=== PATIENT | female | born 1985 | race Caucasian/White ===

== ENCOUNTER 2024-08-17 17:12 | Emergency (ER) | payer OTHER, SELFPAY ==
--- OUTSIDE RECORDS SUMMARY | 2024-08-17 18:04 | XMS_ITS ---
Author Organization [facility] [place] Address [address] [address] Care Team Providers Care Pier Hand Helper Name Role Phone Mauro HANNA, Reynaldo Primary Care Provider Unavailab GUDELIA Irvin Unavailable [phone] Jeremy Rizvi MD Unavailable Unavailable Florecita Valderrama Unavailable [phone] Allergies No Known Allergies REASON FOR VISIT MIGRAINE HEADACHE Medications Medication SIG (Take, Route, Frequency, Duration) Notes Start Date End Date Status Refton Carbonate 150 MG 1 capsule Orall y Twice a day Active busPIRone HCl 10 MG 1 tablet Orally Twic e a day Active Zoloft 50 MG 1 tablet Orally Once a day Active Emgality 120 MG/ML as directed Subcutan eous one injection subcutaneously every month for 90 days 05/26/2023 Active Botox 200 UNIT as directed Injectio n inject intramuscular for chronic migraine for 30 days 07/15/2023 Active Rexulti 0.5 MG 1 tablet Orally Once a day Active Levothyroxine Sodium 175 MCG 1 tablet on an empty stomach in the morning Orally Once a day Active Naprosyn 500 MG 1 tablet as needed O rally every 12 hrs with food for 30 days Active Cyclobenzaprine HCl 5 MG 1-2 tablet Oral ly q hs for 30 days Active Problems Problem Type SNOMED Code ICD Code Onset Dates Problem Status W/U Status Risk Notes Problem Occipital neuralgia (67880503) Occipital neuralgia (M54.81) Active confirmed Vital Signs Blood pressure systolic 122 mm Hg 11/10/19 24 Blood pressure diastolic 66 mm Hg 024 Heart Rate 74 /min 11/10/2023 Temperature 98.6 degrees Fahrenheit 11/10/19 24 Encounters Encounter Location Date Provider Diagnosis [facility] [address] [address] 11/10/2023 Florecita Valderrama Chronic migraine with aura G43.109 and Occipital neuralgia M54.81 Assessments Encounter Date Diagnosis (ICD Code) Assessment Notes Treatment Notes Treatment Clinical Notes Section Notes 11/10/2023 Chronic migraine with aura (ICD-10 - G43.109) The patient had the 200 unti Botox for migraine procedure in the office today. The patient tolerated the procedure well. Postprocedure instructions were discussed. If there are any medication or procedure related problems, the patient will contact us. At the time of discharge the patient was medically stable. We will trial Qulipta. 11/10/2023 Occipital neuralgia (ICD-10 - M54.81) The patient has clinical symptoms of occipital neuralgia with intense pain. We will recommend the diagnostic right occipital nerve block. The symptoms are causing multiple missed days of work per month. The proceudre was discussed with the patient and she agrees with the recommendation. Plan Of Treatment Treatment Notes Assessment Notes Chronic migraine with aura The patient had the 200 unti Botox for migraine procedure in the office today. The patient tolerated the procedure well. Postprocedure instructions were discussed. If there are any medication or procedure related problems, the patient will contact us. At the time of discharge the patient was medically stable. We will trial Qulipta. Occipital neuralgia The patient has clinical symptoms of occipital neuralgia with intense pain. We will recommend the diagnostic right occipital nerve block. The symptoms are causing multiple missed days of work per month. The proceudre was discussed with the patient and she agrees with the recommendation. Procedure Notes * Category Sub-Category Detail Notes Botox Consent The patient is i n the office for Botox injections for treatment of migraines. All pros and cons of the procedure were discussed. The patient is aware of all the side effects of the medication and would like to proceed with the procedure. Various treatment options for correction of migraine were reviewed with the patient. Pre-Op The patient was plac ed in a comfortable supine position. The areas to be injected were cleaned with alcohol. Lot # [id number] Expiration Date 03/2026 Total Units Used Total of 200 units w as formulated, and of that 155 units were used, and 45 units were discarded. Treated Areas After the patient was placed in the procedure room. Using a 30-gauge needle, the following muscles were injected, without any complications. . . Procerus 5 units, Corrugate 10 units, Frontalis 20 units, Temporalis 40 units, Occipitalis 30 units, Paraspinal 20 units, Trapezius 30 units. . Disposition Tolerated procedure well. Post-op care discussed. Written instructions given. Dilution/units Total units utilized = 155, dilution 1.0 cc for 50 units Botox Progress Notes * Jessi ARAMBULADOB:1985 (38 yo F)Acc No.[id number]:11/10/2023 Progress Note Patient:?Jessi ARAMBULA Provider:?Florecita Dutton NP :1985???Age:38 Y???Sex:Female D ate:11/10/2023 Address:[address] [place] [address] Pcp:Reynaldo Wade MD Subjective: * Chief Complaints: * ???MIGRAINE HEADACHE * Medical History:? * Surgical History:?ACDF C5-6 03/06/2015HIATAL HERNIA 07/2016 * Hospitalization/Major Diagno stic Procedure:?Denies Past Hospitalization * Family History:?Non-Contribu tory.? * Medications:?TakingLithium C arbonate 150 MG Capsule 1 capsule Orally Twice a day busPIRone HCl 10 MG Tablet 1 tablet Orally Twice a day Zoloft 50 MG Tablet 1 tablet Orally Once a day Rexulti 0.5 MG Tablet 1 tablet Orally Once a day Levothyroxine Sodium 175 MCG Tablet 1 tablet on an empty stomach in the morning Orally Once a day Naprosyn 500 MG Tablet 1 tablet as needed Orally every 12 hrs with food Cyclobenzaprine HCl 5 MG Tablet 1-2 tablet Orally q hs Emgality 120 MG/ML Solution Auto-injector as directed Subcutaneous one injection subcutaneously every month Botox 200 UNIT Solution Reconstituted as directed Injection inject intramuscular for chronic migraine Taking Refton Carbonate 150 MG Capsule 1 capsule Orally Twice a day Taking busPIRone HCl 10 MG Tablet 1 tablet Orally Twice a day Taking Zoloft 50 MG Tablet 1 tablet Orally Once a day Taking Rexulti 0.5 MG Tablet 1 tablet Orally Once a day Taking Levothyroxine Sodium 175 MCG Tablet 1 tablet on an empty stomach in the morning Orally Once a day Taking Naprosyn 500 MG Tablet 1 tablet as needed Orally every 12 hrs with food Taking Cyclobenzaprine HCl 5 MG Tablet 1-2 tablet Orally q hs Taking Emgality 120 MG/ML Solution Auto-injector as directed Subcutaneous one injection subcutaneously every month Taking Botox 200 UNIT Solution Reconstituted as directed Injection inject intramuscular for chronic migraine * Allergies:?N.K.D.A.no[Allerg ies Verified] Objective: * Vitals:?BP:122/66mm Hg, HR:7 4/min, Temp:98.6F. Assessment: * Assessment: 1.?Chronic migraine with aur a - G43.109 (Primary)?2.?Occipital neuralgia - M54.81? Plan: * Treatment: 2.?Occipital neuralgia? Notes: The patient has clinical symptoms of occipital neuralgia with intense pain. We will recommend the diagnostic right occipital nerve block. The symptoms are causing multiple missed days of work per month. The proceudre was discussed with the patient and she agrees with the recommendation. ?? * Procedures:?Botox:?Consent?The patient is in the office for Botox injections for treatment of migraines. All pros and cons of the procedure were discussed. The patient is aware of all the side effects of the medication and would like to proceed with the procedure. Various treatment options for correction of migraine were reviewed with the patient. .?Pre-Op?The patient was placed in a comfortable supine position. The areas to be injected were cleaned with alcohol..?Lot #?[id number].?Expiration Date?03/2026.?Total Units Used?Total of 200 units was formulated, and of that 155 units were used, and 45 units were discarded..?Treated Areas?After the patient was placed in the procedure room. Using a 30-gauge needle, the following muscles were injected, without any complications. . ?. ?Procerus5 units,Ormhpyzih38 units,Wvtovzeql70 units,Haxsrztrmg75 units,Cqnsijbtjbq47 units,Qvgttmxiwm17 units,Hhqvzfyid91 units. ?..?Disposition?Tolerated procedure well. Post-op care discussed. Written instructions given..?Dilution/units?Total units utilized = 155, dilution 1.0 cc for 50 units Botox.? * Procedure Codes:?44424 CHEMO DENERV MUSC MIGRAINE * * Sign off status: Completed true * Provider:Dion Dutton NP Date:?11/10/19 24 Generated for Shaun roe/Axel/eTransmitting on:?08/17/2024 06:04 PM PIANO TUNER
--- OUTSIDE RECORDS SUMMARY | 2024-08-17 18:04 | XMS_ITS ---
Author Organization [facility] Address [address] [facility] [address] [place] [address] Care Team Providers Care Shop Coordinator Name Role Phone Reynaldo Wade MD Primary Care Provider Unavailab GUDELIA Irvin Unavailable [phone] Jeremy Rizvi MD Unavailable Unavailable Allergies No Known Allergies REASON FOR VISIT MIGRAINE HEADACHE Medications Medication SIG (Take, Route, Frequency, Duration) Notes Start Date End Date Status Botox 200 UNIT as directed Injectio n inject intramuscular for chronic migraine for 30 days 07/15/2023 Active Cyclobenzaprine HCl 5 MG 1-2 tablet Oral ly q hs for 30 days Active Emgality 120 MG/ML as directed Subcutan eous one injection subcutaneously every month for 90 days 05/26/2023 Active Naprosyn 500 MG 1 tablet as needed O rally every 12 hrs with food for 30 days Active Levothyroxine Sodium 175 MCG 1 tablet on an empty stomach in the morning Orally Once a day Active Rexulti 0.5 MG 1 tablet Orally Once a day Active busPIRone HCl 10 MG 1 tablet Orally Twic e a day Active Zoloft 50 MG 1 tablet Orally Once a day Active Novato Carbonate 150 MG 1 capsule Orall y Twice a day Active Problems Problem Type SNOMED Code ICD Code Onset Dates Problem Status W/U Status Risk Notes Problem [id number] Cervical spondylosis (M47.812) Active confirmed Vital Signs Blood pressure systolic 100 mm Hg 12/10/19 24 Blood pressure diastolic 70 mm Hg 024 Heart Rate 83 /min 12/10/2023 Temperature 98.6 degrees Fahrenheit 12/10/19 24 Encounters Encounter Location Date Provider Diagnosis [facility] [address] [address] 12/10/2023 GUDELIA PANDA Chronic migraine wit h aura G43.109 ; Occipital neuralgia M54.81 and Cervical spondylosis M47.812 Assessments Encounter Date Diagnosis (ICD Code) Assessment Notes Treatment Notes Treatment Clinical Notes Section Notes 12/10/2023 Chronic migraine with aura (ICD-10 - G43.109) Her last Botox treatment was 11/10/23, and I would recommend continuation of her Botox treatment to see if she can respond better. I would consider using the extra Botox for the cervical and trapezius muscles. We will trial Qulipta. 12/10/2023 Occipital neuralgia (ICD-10 - M54.81) The patient has clinical symptoms of occipital neuralgia with intense pain. We will recommend the diagnostic right occipital nerve block. The symptoms are causing multiple missed days of work per month. The proceudre was discussed with the patient and she agrees with the recommendation. 12/10/2023 Cervical spondylosis (ICD-10 - M47.812) she also cervical spondylosis and chronic neck pain symptoms. 12/10/2023 Other she is currentl y being evaluated by ENT for sinus related issues. We'll monitor her progress. Plan Of Treatment Treatment Notes Assessment Notes Chronic migraine with aura Her last Botox treatment was 11/10/23, and I would recommend continuation of her Botox treatment to see if she can respond better. I would consider using the extra Botox for the cervical and trapezius muscles. We will trial Qulipta. Occipital neuralgia The patient has clinical symptoms of occipital neuralgia with intense pain. We will recommend the diagnostic right occipital nerve block. The symptoms are causing multiple missed days of work per month. The proceudre was discussed with the patient and she agrees with the recommendation. Cervical spondylosis she also cervical s pondylosis and chronic neck pain symptoms. Other she is currently jeffry ng evaluated by ENT for sinus related issues. We'll monitor her progress. Pending Test Test Name Order Date X ray cervical flexion and extension AP/ Lat 12/10/2023 Progress Notes * Jessi ARAMBULADOB:1985 (38 yo F)Acc No.[id number]:12/10/2023 Patient:?Jessi ARAMBULA Provider:?GUDELIA PANDA M.D. :1985???Age:38 Y???Sex:Female D ate:12/10/2023 Address:[address] [facility] Pcp:Reynaldo Wade MD Subjective: * Chief Complaints: * ???MIGRAINE HEADACHE * HPI: ???FOLLOW UP:? The patient presents in office for evaluation of migraine headaches. ?She has had 2 rounds of Botox Without any significant side effects. ?She has no relief with Nurtec or Ubrelvy. ?The migraines have gradually been getting worse over the last year. She is having chronic sinus infections. ?She is having>15 migraine days per month which is now causing 4-5 missed days of work per month. ?She has been on Emgality with minimal relief. ?She can't identify a cause of the migraines. Stress makes the migraines worse. She denies any neck pain. ?The migraines typically last about 8 hours. She has visual changes at onset. She then develops nausea, vomiting, sensitivity to light and sound. ?Following the migraine, she then has a hangover headache for 2-3 days. ?She takes Imitrex for abortive therapy, but this causes sedation. She has failed Wellbutrin, BuSpar, cyclobenzaprine, naproxen, Zoloft. ?Due to low blood pressure, beta blockers are not a good option for management of the migraines. ?Dr. Resendiz did MRI of brain which did not show any identifying causes for the migraines. ?Recently, the migraines are starting during the night. ?The migraines are worse on the right and left eye. ?She had a X-ray of her neck on 02/25/[address] Durham. ?She had ACDF C5-6 on 02/25/2015. * ROS:?General/Constitutional:?Overall health?Fair.?Change in appetite?denies.?Chills?denies.?Fatigue?denies.?Fever?denies.?Weight gain?denies.?Weight loss?denies.?ENT:?Decreased hearing?denies.?Dry mouth?denies.?Hearing problem?denies.?Endocrine:?Diabetes?denies.?Thyroid problems?denies.?Respiratory:?Breathing problems?denies.?Chest pain?denies.?Cardiovascular:?Chest pain?denies.?Fluid accumulation in the legs?denies.?Gastrointestinal:?Abdominal pain?denies.?Constipation?denies.?Diarrhea?denies.?Musculoskeletal:?Neck pain?admits.?Thoracic pain?denies.?Low back pain?admits.?Arthritis?denies.?Back problems?admits.?Joint stiffness?denies.?Swollen joints?denies.?Weakness?denies.?Peripheral Vascular:?Painful extremities?denies.?Ulceration of feet?denies.?Neurologic:?Gait abnormality?denies.?Headache?admits.?Memory loss?denies.?Seizures?denies.?Stroke?denies.?Tingling/Numbness?denies.?Tremor?de nies.?Psychiatric:?Depressed mood?admits.?Difficulty sleeping?denies.?Substance abuse?denies.? * Medical History:? * Surgical History:?ACDF C5-6 03/06/2015HIATAL HERNIA 07/2016 * Hospitalization/Major Diagno stic Procedure:?No Hospitalization History. * Family History:?No Family Hi story documented..? * Social History:?Drugs/Alcohol:?Caffeine?Intake:?1-2 cups per day.?Do you smoke marijuana?: Denies. Do you drink alcohol?: No. * Medications:?TakingLithium C arbonate 150 MG Capsule [...] directed Injection inject intramuscular for chronic migraine Medication List reviewed and reconciled with the patientTaking Novato Carbonate 150 MG Capsule 1 capsule Orally [...] directed Injection inject intramuscular for chronic migraine Medication List reviewed and reconciled with the patient * Allergies:?N.K.D.A.no[Allerg ies Verified] Objective: * Vitals:?BP:100/70mm Hg, HR:8 3/min, Temp:98.6F. * Examination: ???Neurological: ?CORTICAL FUNCTIONS:?alert and oriented X 3, speech fluent?.?MOTOR STRENGTH:?RIGHT UPPER EXTREMITY: deltoid abduction 5/5, biceps flexion 5/5, triceps extension 5/5, wrist extension 5/5, finger abduction 5/5. ?LEFT UPPER EXTREMITY:deltoid abduction 5/5, biceps flexion 5/5, triceps extension 5/5, wrist extension 5/5, finger abduction 5/5. ?RIGHT LOWER EXTREMITY: Hip Flexor 5/5, Quadriceps 5/5, Ankle DF 5/5, EHL 5/5. ?LEFT LOWER EXTREMITY: Hip Flexor 5/5, Quadriceps 5/5, Ankle DF 5/5, EHL 5/5..?SENSORY:?RIGHT UPPER EXTREMITY; pinprick sensation intact. ?LEFT UPPER EXTREMITY; pinprick sensation intact. ?RIGHT LOWER EXTREMITY: pinprick sensation intact. ?LEFT LOWER EXTREMITY: pinprick sensation intact.?.?REFLEXES:?RIGHT UPPER EXTREMITY; BICEPS: 2+, TRICEPS: 2+, BRACHIORADIALIS: 2+. ?LEFT UPPER EXTREMITY; BICEPS: 2+, TRICEPS: 2+, BRACHIORADIALIS: 2+. ?RIGHT LOWER EXTREMITY: KNEE 3+, ANKLE 3+. ?LEFT LOWER EXTREMITY: KNEE 3+, ANKLE 3+. ? ,?.?CEREBELLAR SIGNS:?absent , absent.?COORDINATION:?no ataxia , no ataxia.?GAIT AND STATION:?within normal limits , within normal limits.?SPEECH:?normal , normal.?Cervical Spine/Neck: ?INSPECTION/PALPATION:?scar from previous surgery..?RANGE OF MOTION OF NECK:?normal in all directions.?MYOFASCIAL TRIGGER POINTS:?Paraspinals, Occipital pain..? Assessment: * Assessment: 1.?Chronic migraine with aur a - G43.109 (Primary)?2.?Occipital neuralgia - M54.81?3.?Cervical spondylosis - M47.812? Plan: * Treatment: 2.?Occipital neuralgia? Notes: The patient has clinical symptoms of occipital neuralgia with intense pain. We will recommend the diagnostic right occipital nerve block. The symptoms are causing multiple missed days of work per month. The proceudre was discussed with the patient and she agrees with the recommendation. ?? 3.?Cervical spondylosis?Imaging: X ray cervical flexion and extension AP/Lat Notes: she also cervical spondylosis and chronic neck pain symptoms.?? 4.?Others? Notes: she is currently being evaluated by ENT for sinus related issues. We'll monitor her progress.?? * Procedure Codes:? * * Sign off status: Completed true * Provider:?GUDELIA PANDA M.D. Date:?2023 Generated for Shaun roe/Axel/Tiago on:?08/17/2024 06:04 PM EGG CRATER History and Physical Notes * Examination Category Sub-Category Detail Notes Category Not es Cervical Spine/Neck RANGE OF MOTION OF NECK: normal in all directions MYOFASCIAL TRIGGER POINTS: Paraspinals, Occipital pain. INSPECTION/PALPATION: scar from previous surgery. Neurological CORTICAL FUNCTIONS: alert and oriented X 3, speech fluent MOTOR STRENGTH: RIGHT UPPER EXTREMIT Y: deltoid abduction 5/5, biceps flexion 5/5, triceps extension 5/5, wrist extension 5/5, finger abduction 5/5. LEFT UPPER EXTREMITY:deltoid abduction 5/5, biceps flexion 5/5, triceps extension 5/5, wrist extension 5/5, finger abduction 5/5. RIGHT LOWER EXTREMITY : Hip Flexor 5/5, Quadriceps 5/5, Ankle DF 5/5, EHL 5/5. LEFT LOWER EXTREMITY: Hip Flexor 5/5, Quadriceps 5/5, Ankle DF 5/5, EHL 5/5. SENSORY: RIGHT UPPER EXTREMIT Y; pinprick sensation intact. LEFT UPPER EXTREMITY; pinprick sensation intact. RIGHT LOWER EXTREMITY: pinprick sensation intact. LEFT LOWER EXTREMITY: pinprick sensation intact. REFLEXES: RIGHT UPPER EXTREMIT Y; BICEPS: 2+, TRICEPS: 2+, BRACHIORADIALIS: 2+. LEFT UPPER EXTREMITY; BICEPS: 2+, TRICEPS: 2+, BRACHIORADIALIS: 2+. RIGHT LOWER EXTREMITY: KNEE 3+, ANKLE 3+. LEFT LOWER EXTREMITY: KNEE 3+, ANKLE 3+. , PLANTARS: CEREBELLAR SIGNS: absent , absent TREMORS: COORDINATION: no ataxia , no ataxi a GAIT AND STATION: within normal limits , within normal limits SPEECH: normal , normal TINEL'S COMPRESSION: PHALEN'S SIGN:
--- OUTSIDE RECORDS SUMMARY | 2024-08-17 18:05 | XMS_ITS | Patient Health Record ---
Author Organization [facility] [employer] [facility] Address [address] [address] Care Team Providers Care Chief Console Operator Name Role Phone Reynaldo Wade MD Primary Care Provider Unavailab GUDELIA Irvin Unavailable [phone] Jeremy Rizvi MD Unavailable Unavailable Florecita Valderrama Unavailable [phone] Allergies No Known Allergies Reason For Referral No Information Medications Medication SIG (Take, Route, Frequency, Duration) Notes Start Date End Date Status Cyclobenzaprine HCl 5 MG 1-2 tablet Oral ly q hs for 30 days Active Emgality 120 MG/ML as directed Subcutan eous one injection subcutaneously every month for 90 days 05/26/2023 Active Naprosyn 500 MG 1 tablet as needed O rally every 12 hrs with food for 30 days Active Botox 200 UNIT INJECT INTO THE MUSC LE DIRECTED FOR CHRONIC MIGRAINE. DISCARD UNUSED PORTION. (MUST RECONSTITUTE) Active Rexulti 0.5 MG 1 tablet Orally Once a day Active Levothyroxine Sodium 175 MCG 1 tablet on an empty stomach in the morning Orally Once a day Active busPIRone HCl 10 MG 1 tablet Orally Twic e a day Active Zoloft 50 MG 1 tablet Orally Once a day Active Jeannette Carbonate 150 MG 1 capsule Orall y Twice a day Active Problems Problem Type SNOMED Code ICD Code Onset Dates Problem Status W/U Status Risk Notes Problem Refractory migraine with aura (421114006) Migraine with aura, intractable, without status migrainosus (G43.119) Active confirmed Problem Occipital neuralgia (00098050) Occipital neuralgia (M54.81) Active confirmed Problem 29321918 Sacroiliitis (M46.1) Active confirmed Problem 926331686 Lumbar radiculopathy (M54.16) Active confirmed Problem 354599486 Cervical myofasc ial pain syndrome (M79.1) Active confirmed Problem 790877703 Acute bilateral low back pain without sciatica (M54.5) Active confirmed Problem 58275826 Spinal enthesopa thy of cervicothoracic region (M46.03) Active confirmed Problem 791701292 Cervical spondylosis (M47.812) Active confirmed Problem Migraine with aura (3401249) Chronic migraine with aura (G43.109) Active confirmed Vital Signs Heart Rate 83 /min 12/10/2023 Temperature 98.6 degrees Fahrenheit 12/10/2023 Blood pressure diastolic 70 mm Hg 12/10/2023 Blood pressure systolic 100 mm Hg 12/10/2023 Encounters Encounter Location Date Provider Diagnosis [facility] [address] [address] 11/10/2023 Florecita Valderrama Chronic migraine wit h aura G43.109 and Occipital neuralgia M54.81 [facility] [address] [address] 12/10/2023 GUDELIA AHMAD Chronic migraine wit h aura G43.109 ; Occipital neuralgia M54.81 and Cervical spondylosis M47.812 Assessments Encounter Date Diagnosis (ICD Code) Assessment Notes Treatment Notes Treatment Clinical Notes Section Notes 11/10/2023 Occipital neuralgia (ICD-10 - M54.81) The patient has clinical symptoms of occipital neuralgia with intense pain. We will recommend the diagnostic right occipital nerve block. The symptoms are causing multiple missed days of work per month. The proceudre was discussed with the patient and she agrees with the recommendation. 11/10/2023 Chronic migraine with aura (ICD-10 - G43.109) The patient had the 200 unti Botox for migraine procedure in the office today. The patient tolerated the procedure well. Postprocedure instructions were discussed. If there are any medication or procedure related problems, the patient will contact us. At the time of discharge the patient was medically stable. We will trial Qulipta. 12/10/2023 Occipital neuralgia (ICD-10 - M54.81) The patient has clinical symptoms of occipital neuralgia with intense pain. We will recommend the diagnostic right occipital nerve block. The symptoms are causing multiple missed days of work per month. The proceudre was discussed with the patient and she agrees with the recommendation. 12/10/2023 Chronic migraine with aura (ICD-10 - G43.109) Her last Botox treatment was 11/10/23, and I would recommend continuation of her Botox treatment to see if she can respond better. I would consider using the extra Botox for the cervical and trapezius muscles. We will trial Qulipta. 12/10/2023 Cervical spondylosis (ICD-10 - M47.812) she also cervical spondylosis and chronic neck pain symptoms. 12/10/2023 Other she is currentl y being evaluated by ENT for sinus related issues. We'll monitor her progress. Plan Of Treatment Pending Test Test Name Order Date X ray : Spines, lumbar 03/18/2018 X ray : Pelvis 03/18/2018 X ray cervical flexion and extension AP/ Lat 12/10/2023 Insurance Providers Payer Name Payer Address Payer Phone Subscriber Number Group Number Insured Name Patient Relationship to Insured Coverage Start Date Coverage End Date [employer] [address] [place] [address] [id number] Jessi Arambula Self - patient is the insured Medical (General) History Surgical History Surgery Date(Month/Year) ACDF C5-6 03/06/2015 HIATAL HERNIA 07/2016
--- OUTSIDE RECORDS SUMMARY | 2024-08-17 18:05 | XMS_ITS | Continuity of Care Document ---
Author Organization [facility] Address [address] [place] [address] Phone Care Team Providers Care Agricultural Pilot Name Role Phone Reynaldo Saleem MD Unavailable Unavailable Advance Directives Directive Yes / No Effective Date File Name No Information Encounters Encounter Description Practice Location Reason(s) For Visit Diagnoses Date Provider Providers Copied on Encounter [facility], [address], [place], [address], [place] tel:[phone] [facility] No Information [address] Harper Jacobs. [address] [place], [place], [id number] . tel: [phone] Family History Family Member Type Diagnosis Age At Onset No Information Payers Payer name Insurance type Covered green party ID Authoriza tion(s) No Information Social History Type Description Quantity Date Captured Comments Sex Female Smoking Status No Information Chief Complaint And Reason For Visit No Information Reason For Referral Reason For Referral No Information History Of Present Illness Encounter Date Complaint History Of Prese nt Illness No Information Functional Status Date Functional Assessmen t No Information Instructions Date Instruction Additional Infor mation No Information Assessments Type Assessment Date No Information Patient Care Teams Name Effective Dates (start - stop) Status Members No Information
--- OUTSIDE RECORDS SUMMARY | 2024-08-17 18:05 | XMS_ITS | Encounter Summary ---
Author Organization [facility] Address [address] [place] [address] Care Team Providers Care Etl Informatica Developer Name Role Phone Hugo Mansfield MD Primary Care Provider [phone] Encounter Details Date Type Department Care Team (Late st Contact Info) Description 12/20/2018 Lab Requisition [facility] Care D[facility]Path Lab [address] [place] [id number] Paresh Howard MD [address] [place] [address] Social History Tobacco Use Types Packs/Day Years Used Date Smoking Tobacco: Every Day Smokeless Tobacco: Never Alcohol Use Standard Drinks/Week Comments No 0 (1 standard drink = 0.6 oz pur e alcohol) Sex and Gender Information Value Date Recorded Sex Assigned at Not on file Gender Identity Not on file Sexual Orientation Not on file documented as of this encounter Plan of Treatment Not on file documented as of this encounter Procedures Procedure Name Priority Date/Time Associated Diagnosis Comments DERMATOPATHOLOGY Routine 12/17/2018 12:0 0 AM CDT documented in this encounter Results * DERMATOPATHOLOGY (12/17/2018 12:00 AM CDT) Case Report Dermatopathology Report ? Case: [id number] ? Authorizing Provider: ??Paresh Howard MD ? Collected: ? 12/17/2018 12:00 AM ? Pathologist: ? Christa Mcdaniel MD ? Received: ?12/20/2018 11:32 AM ? Specimen: ?Skin, back ? 5:37 PM CDT DERMATOPATHOLOGY LABORATORY Final Diagnosis Specimen A. SKIN, back: COMPOUND MELANOCYTIC NEVUS, IRRITATED (D22.5) 5:37 PM CDT DERMATOPATHOLOGY LABORATORY Clinical History Nevus. 5:37 PM CDT DERMATOPATHOLOGY LABORATORY Gross Description Specimen A: Received is one formalin filled container labeled with the patient's name. The specimen consists of a shave biopsy measuring [id number]. Jar 0. 5:37 PM CDT DERMATOPATHOLOGY LABORATORY Microscopic Description Specimen A. SKIN, back: There is melanin pigment in the stratum corneum. There are nests of melanocytes at the dermal-epidermal junction and within the dermis. 5:37 PM CDT DERMATOPATHOLOGY LABORATORY Disclaimer An external and internal positive and negative controls are appropriate for the histochemical, immunohistochemical and immunofluorescence stain(s) in this case (if any), except where stated explicitly. The performance characteristics of the stain(s) cited in this report were developed and its performance characteristic determined by the Dermatopathology Laboratory at [facility], directed by Dr. Macy Mcdaniel. These tests need not be, and therefore are not, approved by the [place] Food and Drug Administration. The tests are used for clinical purposes. Billing Codes Specimen Charges Stain Charges 55277 1 9 5:37 PM CDT DERMATOPATHOLOGY LABORATORY Embedded Images 9 5:37 PM CDT DERMATOPATHOLOGY LABORATORY Pathology/Cytolog y TISSUE SPECIMEN FROM SKIN / Unknown 12/17/2018 12/20/2018 11:32 AM CDT Paresh Howard MD LAB - PATHOLOGY/CYTO LOGY ORDERABLES DERMATOPATHOLOGY LABORATORY [facility] - Department of Dermatology [address] [place] [address], 5th Floor Lab [address] [phone] documented in this encounter Visit Diagnoses Not on filedocumented in this encounter Care Teams Etl Informatica Developer Relationship Specialty Start Date End Date Hugo Mansfield MD [address] [place] [address] PCP - General Political Advisor 01/05/24 documented as of this encounter
--- OUTSIDE RECORDS SUMMARY | 2024-08-17 18:05 | XMS_ITS | Continuity of Care Document ---
Author Organization [facility] Address [address] [place] [address] Phone Care Team Providers Care Curriculum Coordinator Name Role Phone Kenyatta OD OD, Erna Unavailable Unavai lable Allergies, Adverse Reactions, Alerts Substance Reaction Status Criticality No Known Allergies Active No Inform ation Medications Medication Instructions Dosage Effective Dates (start - stop) Status Comments erythromycin 5 mg/gram (0.5 %) eye ointment apply (1CM) by ophthalmic route 3 times every day ribbon into the lower conjunctival sac(s) in the affected eye(s) 1 CM - Active levothyroxine 175 mcg tablet take 1 tablet by oral route every day 175 MCG - Active pantoprazole 40 mg tablet,delayed release take 1 tablet by oral route every day 40 MG - Active Procedures Procedure Date OFFICE/OUTPATIENT VISIT, EST OFFICE/OUTPATIENT VISIT, NEW REMOVE FOREIGN BODY FROM EYE Advance Directives Directive Yes / No Effective Date File Name No Information Encounters Encounter Description Practice Location Reason(s) For Visit Diagnoses Date Provider Providers Copied on Encounter OFFICE/OUTPAT IENT VISIT, EST [facility], [address], [place], [place], [address], [place] tel:[phone] Oph Consult [facility] Office k abrasion f/u (chief complaint) Corneal abrasion, right, subsequent encounterPain around right eye 6 Derheimer OD Erna. [address] , [address], [place], [place], [address], [place]. tel:[phone] Referring Provider: Erna You OD, [address], [place], [place], [address]. tel:[phone] OFFICE/OUTPAT IENT VISIT, NEW [facility], [address], [place], [place], [address], [place] tel:[phone] [phone] CONSULT CHANNING CHENG painful and tearing (chief complaint) Pain around right eyeCorneal abrasion, right, initial encounter 6 Kenyatta OD Erna. [address], [place], [place], [address], [place]. tel:[phone] Referring Provider: Erna You OD, [address], [place], [place], [address]. tel:[phone] Family History Family Member Type Diagnosis Age At Onset Problem (finding) Family history of Macul ar degeneration Payers Payer name Insurance type Covered democrat ID Authoranthonya tirema(s) [facility] [id number] Social History Type Description Quantity Date Captured Comments Alcohol Use Details Caffeine Use Details Unknown Tobacco Use Status No Information Smoking Status Current every day smoker 2015 Sex Female Chief Complaint And Reason For Visit From encounter dated '06/09/2016 12:00'. k abrasion f/u (chief complaint). Description: The 30 year old female presents for evaluation of k abrasion f/u in the right eye. It started about 6 day(s) ago. The symptom is constant. The conditionis improving. Pt says no more pain, just a little light sensitive. BCL fell out Thursday. Pt reduced Erythromycin marissa use to BID since Thursday becauses of blurriness. Plan Of Treatment Date Type Action Status No Information History Of Present Illness Encounter Date Complaint History Of Prese nt Illness k abrasion f/u The 30 year old female presents for evaluation of k abrasion f/u in the right eye. It started about 6 day(s) ago. The symptom is constant. The condition is improving. Pt says no more pain, just a little light sensitive. BCL fell out Thursday. Pt reduced Erythromycin marissa use to BID since Thursday becauses of blurriness. painful and tearing The 30 year old female presents for evaluation of painful and tearing in the right eye. It started about 3 hour(s) ago. The symptom is constant. The condition is worsening. Pt hit eye with an envelope earlier today. Pt having very difficult time keeping OD open. Instructions Date Instruction Additional Infor mation Impression/Plan - Se condary to Corneal Abrasion OD Related to Pain around right eye Impression/Plan - Co ndition improving Cont. Erythromycin marissa TID OD x2days & then D/cDiscussed risk or recurrent erosion in the future. Pt to start ATs OU - sample given of Blink today Related to Corneal abrasion, right, subsequent encounter Follow up - RTO as needed Impression/Plan - OD : Discussed diagnosis in detail with patient. Advised patient of condition, no infection. Reassured patient of current condition and treatment. 1 gtt Besivance instilled in eye and BCL was placed today. Will ERx antibiotic gtt today. Erythromycin marissa TID OD sent to pharmacy today. RTO Thursday for f/u Related to Corneal abrasion, right, initial encounter Impression/Plan - Se condary to abrasion. Related to Pain around right eye Follow up - RTO for f/u Thursday Assessments Type Assessment Date impression Corneal abrasion, right, subsequ ent encounter: S05.01xD OD. assessment Corneal abrasion, right, subsequ ent encounter assessment Pain around right eye 6 impression Pain around right eye: H57.11 OD .
--- OUTSIDE RECORDS SUMMARY | 2024-08-17 18:05 | XMS_ITS ---
Author Organization [facility] Address [address] [address] Care Team Providers Care Account Manager Sales Representative Name Role Phone Mauro HANNA, Reynaldo Primary Care Provider Unavailab GUDELIA Irvin Unavailable [phone] Dmitri HANNA, Jeremy Unavailable Unavailable Encounters Encounter Location Date Provider Diagnosis [facility] [address] [address] 02/10/2024 GUDELIA PANDA Plan Of Treatment No Information Progress Notes * Jessi ARAMBULADOB:1985 (39 yo F)Acc No.[id number]:02/10/2024 Progress Note Patient:?Jessi ARAMBULA Provider:?GUDELIA PANDA M.D. :1985???Age:38 Y???Sex:Female D ate:02/10/2024 Address:[address] [place] [address] Pcp:Reynaldo Wade MD Subjective: * Chief Complaints: * ??? * Medical History:? Objective: * Vitals:? Assessment: Plan: * Treatment: * * Electronic signature of PRESLEY PANDA MD on 08/17/2024 at 06:04 PM MOLDER FEEDER Sign off status: Pending * Provider:SARAH PANDA M.D. Date:?2023 Generated for Shamekai jyothi/Fanikkieg/eTransmitting on:?08/17/2024 06:04 PM MOLDER FEEDER
--- OUTSIDE RECORDS SUMMARY | 2024-08-17 18:05 | XMS_ITS | Referral Summary ---
Author Organization [facility] Address [address] [place] [address] Care Team Providers Care Rides Attendant Name Role Phone Hugo Mansfield MD Primary Care Provider [phone] Source Comments [facility]non-owned Affiliates and Associated Physician Practices is amultiple site organization consisting of ambulatory clinics and hospital sitesin [place], [place], [place] and [place]. This disclosure is being madepursuant to the Care Everywhere program and may not contain all information available regarding this patient. Last updated 18.[facility] Allergies No known active allergies Medications * Be aware that medications may not be up to date on this document. Alwaysverify current medications with the patient. Medication Sig Dispensed Refills Start Date End Date Status levonorgestrel (MIRENA) 20 MCG/24HR IUD 1 (one) device by Intrauterine route as directed Active Rexulti 0.5 MG tablet Take 1 (one) tablet by mouth every morning 09/09/2023 Active FLUoxetine (PROzac) 20 MG capsule Take 1 (one) capsule by mouth once daily 09/07/2023 Active busPIRone (Buspar) 15 MG tablet Take 1 (one) tablet by mouth 2 times daily Active levothyroxine (Synthroid) 200 MCG tablet Take 1 (one) tablet by mouth once daily 02/05/2023 Active levothyroxine (Synthroid) 50 MCG tablet Take 1 (one) tablet by mouth once daily 10/24/2022 Active lithium CR (Lithobid) 300 MG tablet Take 1 (one) tablet by mouth at bedtime 08/21/2023 Active omeprazole (PriLOSEC) 20 MG capsule Take 1 (one) capsule by mouth once daily 01/02/2023 Active Multiple Vitamin (Genicin Nena-Q) TABS Take 1 mg by mouth once daily Active Cyanocobalamin (B-12) 50 MCG Take 300 (three hundred) tablets by mouth once daily Active folic acid 400 MCG tablet Take 1 (one) tablet by mouth once daily Active biotin 2.5 MG tablets Take 1 (one) tablet by mouth once daily Active magnesium 30 MG tablet Take 200 mg by mouth once daily Active mupirocin (Bactroban) 2 % ointment Apply to affected area 3 times daily 22 g 01/05/2024 Active predniSONE (Deltasone) 10 MG tablet TAKE 1 TABLET BY MOUTH THREE TIMES DAILY WITH MEALS FOR 3 DAYS THEN TAKE 1 TABLET TWICE DAILY FOR 2 DAYS THEN TAKE 1 TABLET DAILY FOR 1 DAY 02/08/2024 Active ondansetron (Zofran) 8 MG tablet Take 1 (one) tablet by mouth every 8 hours as needed 01/27/2024 Active onabotulinumtoxin A (Botox) 200 units injection as directed Injection inject intramuscular for chronic migraine for 30 days 07/15/2023 Active methylPREDNISolone (Medrol Dosepak) 4 MG tablet 02/07/2024 Active traMADol (Ultram) 50 MG tablet Take 1 (one) tablet by mouth every 6 hours as needed for Pain 12 tablet 02/10/2024 Active famotidine (Pepcid) 40 MG tablet Take 1 (one) tablet by mouth once daily Active acetaminophen (Tylenol) 325 MG tablet Take 2 (two) tablets by mouth every 6 hours as needed for Fever or Pain Maximum allowable Acetaminophen amount = 4 Grams (4000 mg) / 24 hours. 02/22/2024 Active ondansetron (Zofran) 4 MG tablet Take 1 (one) tablet by mouth every 6 hours as needed for Nausea/Vomiting 5 tablet 02/22/2024 Active oxyCODONE, immediate release, (Roxicodone) 5 MG tabletIndications: Nasal septal perforation,Nasal obstruction Take 1 (one) tablet by mouth every 6 hours as needed for Pain 12 tablet 02/25/2024 Active Active Problems Problem Noted Date Diagnosed Date Developmental venous anomaly, cerebral 3 Nonintractable headache 11/05/2022 Bipolar disorder 12/06/2020 High risk human papilloma virus (HPV) infection of cervix 02/03/2020 Anxiety and depression 08/24/2019 Family history of colon cancer 08/24/2019 Status post Jose R fundoplication 08/24/2019 Herniation of intervertebral disc between L5 and S1 08/31/2018 Acute bilateral back pain 03/23/2018 GERD (gastroesophageal reflux disease) 8 Hypothyroidism 03/23/2018 Atypical nevus 03/12/2015 Cervical radiculopathy 03/05/2015 Smokes tobacco daily 01/06/2013 Immunizations Name Administration Dates Next Due INFLUENZA VACCINE, TRIV. (AF LURIA, FLUZONE TRIVALENT; 6MO+) (IIV3) 04/30/2021,04/30/2020,04/19/2019 INFLUENZA VACCINE, QUADR. (F LUZONE; FLULAVAL; FLUARIX; AFLURIA QUADRIVALENT; 6MO+), 0.5 ML (IIV4) 04/22/2023,05/06/2022 TDAP (7yrs+) 07/20/2012 Social History Tobacco Use Types Packs/Day Years Used Date Smoking Tobacco: Former Cigarettes 0.3 23.6 2 001 - 02/20/2024 Smokeless Tobacco: Never Tobacco Cessation:Counseling Given: Not Answered Alcohol Use Standard Drinks/Week Comments Not Currently 1 (1 standard drink = 0.6 oz pur e alcohol) socially AUDIT-C Answer Date Recorded Q1: How often do you have a drink containing alc ohol? 2-4 times a month 02/22/2024 Average Number of Drinks Not on file 024 Frequency of Binge Drinking Not on file 11/2023 Sex and Gender Information Value Date Recorded Sex Assigned at Not on file Gender Identity Not on file Sexual Orientation Not on file Last Filed Vital Signs Vital Sign Reading Time Taken Comments Blood Pressure 118/86 02/25/2024 10:05 AM CDT Pulse 112 02/25/2024 10:05 AM CDT Temperature 36.5 ??C (97.7 ??F) 02/22/2024 2:36 PM CD T Respiratory Rate 16 02/22/2024 3:16 PM CDT Oxygen Saturation 94% 02/22/2024 3:16 PM CDT Inhaled Oxygen Concentration - - Weight 93 kg (205 lb) 02/25/2024 10:05 AM CDT Height 177.8 cm (5' 10 ) 02/25/2024 10:05 AM CDT Body Mass Index 29.41 02/25/2024 10:05 AM CDT Plan of Treatment Not on file Care Teams Rides Attendant Relationship Specialty Start Date End Date Hugo Mansfield MD [address] [place] [address] PCP - General Ssds Mk 2 Advanced Operator 01/05/24
--- OUTSIDE RECORDS SUMMARY | 2024-08-17 18:05 | XMS_ITS | Patient Health Summary ---
Author Organization [facility] Address [address] [place] [address] Care Team Providers Care Bariatric Coordinator Name Role Phone Hugo Mansfield MD Primary Care Provider [phone] Note from [facility],non-owned Affiliates and Associated Physician Practices is amultiple site organization consisting of ambulatory clinics and hospital sitesin [place], [place], [place] and [place]. This disclosure is being madepursuant to the Care Everywhere program and may not contain all information available regarding this patient. Last updated 18.[facility] Allergies No known active allergies* Oxycodone(Nausea and/or Vomiting),Inactive Medications * Be aware that medications may not be up to date on this document. Alwaysverify current medications with the patient. * levonorgestrel (MIRENA) 20 MCG/24HR IUD 1 (one) device by Intrauterine route as directed * Rexulti 0.5 MG tablet(Started 09/09/2023) Take 1 (one) tablet by mouth every morning * FLUoxetine (PROzac) 20 MG capsule(Started 09/07/2023) Take 1 (one) capsule by mouth once daily * busPIRone (Buspar) 15 MG tablet Take 1 (one) tablet by mouth 2 times daily * levothyroxine (Synthroid) 200 MCG tablet(Started 02/05/2023) Take 1 (one) tablet by mouth once daily * levothyroxine (Synthroid) 50 MCG tablet(Started 10/24/2022) Take 1 (one) tablet by mouth once daily * lithium CR (Lithobid) 300 MG tablet(Started 08/21/2023) Take 1 (one) tablet by mouth at bedtime * omeprazole (PriLOSEC) 20 MG capsule(Started 01/02/2023) Take 1 (one) capsule by mouth once daily * Multiple Vitamin (Genicin Nena-Q) TABS Take 1 mg by mouth once daily * Cyanocobalamin (B-12) 50 MCG Take 300 (three hundred) tablets by mouth once daily * folic acid 400 MCG tablet Take 1 (one) tablet by mouth once daily * biotin 2.5 MG tablets Take 1 (one) tablet by mouth once daily * magnesium 30 MG tablet Take 200 mg by mouth once daily * mupirocin (Bactroban) 2 % ointment(Started 01/05/2024) Apply to affected area 3 times daily * predniSONE (Deltasone) 10 MG tablet(Started 02/08/2024) TAKE 1 TABLET BY MOUTH THREE TIMES DAILY WITH MEALS FOR 3 DAYS THEN TAKE 1 TABLET TWICE DAILY FOR 2DAYS THEN TAKE 1 TABLET DAILY FOR 1 DAY * ondansetron (Zofran) 8 MG tablet(Started 01/27/2024) Take 1 (one) tablet by mouth every 8 hours as needed * onabotulinumtoxin A (Botox) 200 units injection(Started 07/15/2023) as directed Injection inject intramuscular for chronic migraine for 30 days * methylPREDNISolone (Medrol Dosepak) 4 MG tablet(Started 02/07/2024) * traMADol (Ultram) 50 MG tablet(Started 02/10/2024) Take 1 (one) tablet by mouth every 6 hours as needed for Pain * famotidine (Pepcid) 40 MG tablet Take 1 (one) tablet by mouth once daily * acetaminophen (Tylenol) 325 MG tablet(Started 02/22/2024) Take 2 (two) tablets by mouth every 6 hours as needed for Fever or Pain Maximum allowable Acetaminophen amount = 4 Grams (4000 mg) / 24 hours. * ondansetron (Zofran) 4 MG tablet(Started 02/22/2024) Take 1 (one) tablet by mouth every 6 hours as needed for Nausea/Vomiting * oxyCODONE, immediate release, (Roxicodone) 5 MG tablet(Started 02/25/2024) Take 1 (one) tablet by mouth every 6 hours as needed for Pain Active Problems Problem Noted Date Diagnosed Date [...] radiculopathy 03/05/2015 Smokes tobacco daily 01/06/2013 Immunizations * INFLUENZA VACCINE, TRIV. (AFLURIA, FLUZONE TRIVALENT; 6MO+) (IIV3)(Given 04/30/2021, 04/30/2020, 04/19/2019) * INFLUENZA VACCINE, QUADR. (FLUZONE; FLULAVAL; FLUARIX; AFLURIA QUADRIVALENT; 6MO+), 0.5 ML (IIV4)(Given 04/22/2023, 05/06/2022) * TDAP (7yrs+)(Given 07/20/2012) Social History Tobacco Use Types Packs/Day Years [...] Mass Index 29.41 02/25/2024 10:05 AM CDT Procedures * RI ENDO NASAL SINUS BX POLYP DEBRID AURA(Performed 02/25/2024) Performed for Nasal septal perforation, Nasal pain, Nasal congestion, Nasal crusting * CULTURE FLUID+GRAM STAIN(Performed 02/22/2024) Performed for Nasal septal perforation * PATHOLOGY TISSUE(Performed 02/22/2024) Performed for Nasal septal perforation, Nasal obstruction * CULTURE AFB+SMEAR(Performed 02/22/2024) Performed for Nasal septal perforation * CULTURE FUNGUS OTHER+FUNGUS SMEAR(Performed 02/22/2024) Performed for Nasal septal perforation * CULTURE ANAEROBE(Performed 02/22/2024) Performed for Nasal septal perforation * ENDOTRACHEAL TUBE NOTE(Performed 02/22/2024) * RI NASAL SCOPE,BX/RMV POLYP/DEBRID(Performed 02/22/2024) Performed for Nasal septal perforation, Nasal obstruction * HCG URINE QUALITATIVE - POCT (IP) INTERFACED(Performed 02/22/2024) * HCG URINE QUAL POCT NOTIFICATION(Performed 02/22/2024) Performed for Nasal septal perforation * RI ENDO NASAL SINUS BX POLYP DEBRID AURA(Performed 02/08/2024) Performed for Nasal septal perforation * RI NASAL ENDOSCOPY,DX(Performed 01/27/2024) Performed for Nasal septal perforation, Nasal turbinate hypertrophy * ANCA SCREEN W REFLEX TO ANCA TITER(Performed 01/11/2024) Performed for Nasal turbinate hypertrophy, Nasal septal perforation, Chronic rhinitis * SS-A/SS-B (SJOGREN'S) ANTIBODY PANEL(Performed 01/11/2024) Performed for Nasal turbinate hypertrophy, Nasal septal perforation, Chronic rhinitis * LAB RESULTS ORDER(Performed 01/11/2024) * RI ENDO NASAL SINUS BX POLYP DEBRID AURA(Performed 01/05/2024) Performed for Nasal turbinate hypertrophy * DERMATOPATHOLOGY(Performed 12/17/2018) Results * RI ENDO NASAL SINUS BX POLYP DEBRID AURA (02/25/2024 10:56 AM CDT) Narrative Paresh Hernandez MD - 02/25/2024 10:56 AM CDT Paresh Hernandez MD ? 02/25/2024 12:06 PM Due to the findings on physical examination, in correlation with the patient's symptomatology, the decision was made to perform a procedure today in clinic. Consent obtained prior to starting procedure. Procedure Note: Pre Op Dx: septal perforation, nasal crusting Post Op Dx: same Procedure performed: Bilateral nasal endoscopy with debridement Surgeon: Mary Procedure in detail: The risks, benefits, alternatives, and indications of the procedure were discussed in great detail and the patient understood these and wished to proceed. Anesthesia: Bilateral Nasal Cavities sprayed with lidocaine and Neosynephrine Detail: ??Rigid nasal endoscopy performed bilaterally. ??The septal mucosa was swollen bilaterally though improved from prior exam. Anterior septal perforation which was measured at 2x1 cm in prior procedure. Crusting and small blood clots around edges of the perforation which were removed using suction and forceps. Small airway patent, primarily on the right with remaining septal deviation to the left. Dr. Hernandez performed this procedure. Paresh Hernandez MD PROCEDURE/MINOR PUENTES RGICAL ORDERABLES * CULTURE FLUID+GRAM STAIN (02/22/2024 9:59 PM CDT) Culture No growth KERLINE 02/26/2024 2:27 PM CDT [facility] Gram Stain No organisms seen 024 2:27 PM CDT [facility] Gram Stain Light Polymorphonuclear cells 02/26/2024 2:27 PM CDT [facility] Fluid BODY FLUID SPECIMEN / Unknown Collection / Unknown 02/22/2024 9:59 PM CDT 02/22/2024 10:00 PM CDT Paresh Hernandez MD LAB - MICROBIOLOGY ORDERABLES [facility] [address] [place] [address], [facility] [phone] * PATHOLOGY TISSUE (02/22/2024 2:25 PM CDT) Case Report Surgical Pathology Report ? Case: [id number] ? Authorizing Provider: ??Paresh Hernandez MD ?Collected: ? 02/22/2024 02:25 PM ? Ordering Location: ? [facility] SURGERY ? Received: ?02/23/2024 08:36 AM ? Pathologist: ? Rosa Peterson MD ? Specimen: ?Nasal Contents, NASAL CAVITY BIOPSY ? 02/24/2024 9:15 AM [facility] Final Diagnosis Nasal contents, biopsy (A): - Sinonasal mucosa with chronic inflammation and detached fragments of necroinflammatory debris - Negative for malignancy 02/24/2024 9:15 AM [facility] Microscopic Description and Comment Sections demonstrate fragments of cartilage and sinonasal mucosa with dense lymphocytes and plasma cells. Separate fragments of necrotic debris with entrapped neutrophils and eosinophils are present. 02/24/2024 9:15 AM [facility] Clinical History The patient is a 38 year old female with a history of nasal septal perforation and nasal obstruction. 02/24/2024 9:15 AM [facility] Gross Description The requisition and specimen(s) are identified with the patient's name, Jessi Arambula. Received in formalin, specimen A , are multiple chang-white glistening soft tissue fragments aggregating to 2.0 x 1.0 x 0.3 cm. Submitted in toto in A1. MSL 02/24/2024 9:15 AM CDT [facility] Pathologist Location at [facility] 02/24/2024 9:15 AM CDT [facility] Disclaimer The performance characteristics of all immunohistochemical and indirect immunofluorescence stains (if any) cited in this report were determined by the Histopathology Laboratory of [facility]. Some of these tests were developed by our own laboratory and have not been cleared or approved by the US Food and Drug Administration. The FDA does not require this test to go through premarket FDA review. These tests are used for clinical purposes. They should not be regarded as investigational or for research. This laboratory is certified under the Clinical Laboratory Improvement Amendments (CLIA) as qualified to perform high complexity clinical laboratory testing. This case has been personally reviewed and interpreted by the attending (teaching) pathologist. 02/24/2024 9:15 AM CDT [facility] Embedded Images 02/24/2024 9:15 AM CDT [facility] Biopsy, Excision NASAL CONTENTS / Unknown 02/22/2024 2:25 PM CDT 02/23/2024 8:36 AM CDT Comment:Pre-op diagnosis: NASAL SEPTAL PERFORATION; NASAL OBSTRUCTION Paresh Hernandez MD LAB - PATHOLOGY/CY TOLOGY ORDERABLES [facility] [address] [place] [address], [facility] [phone] * CULTURE AFB+SMEAR (02/22/2024 2:24 PM CDT) Culture No acid-fast bacillus isolated 04/04/2024 7:33 AM CDT [facility] AFB Smear No acid-fast bacilli seen 04/04/2024 7:33 AM CDT [facility] Microbiology SINUS / Unknown Collection / Unknown 02/22/2024 2:24 PM CDT 02/22/2024 10:03 PM CDT Paresh Hernandez MD LAB - MICROBIOLOGY ORDERABLES [facility] [address] [place] [address], [facility] [phone] * CULTURE FUNGUS OTHER+FUNGUS SMEAR (02/22/2024 2:14 PM CDT) Culture No fungus isolated KERLINE 03/22/2024 8:26 AM CDT [facility] Fungus Stain No yeast or hyphae seen 03/22/2024 8:26 AM CDT [facility] Microbiology SINUS / Unknown Collection / Unknown 02/22/2024 2:14 PM CDT 02/22/2024 9:58 PM CDT Paresh Hernandez MD LAB - MICROBIOLOGY ORDERABLES Performing Organization Address [facility] Co de Phone Number [facility] [address] [place] [address], [facility] [phone] * (ABNORMAL) CULTURE ANAEROBE (02/22/2024 2:14 PM CDT) Culture Light Cutibacterium (formerly Propionibacterium ) acnes(A) KERLINE 02/28/2024 2:21 PM CDT [facility] Microbiology SINUS / Unknown Collection / Unknown 02/22/2024 2:14 PM CDT 02/22/2024 9:59 PM CDT Paresh Hernandez MD LAB - MICROBIOLOGY ORDERABLES Performing Organization Address [facility] Co de Phone Number [facility] [address] [place] [address], [facility] [phone] * ETT LINE PERFORMABLE (02/22/2024 2:00 PM CDT) Narrative Machelle Butler APRN-CRNA - 02/22/2024 2:00 PM CDT Machelle Butler APRN-CRNA ? 02/22/2024 ??2:00 PM Endotracheal Tube Placement: ? Patient Location: OR. Intubation Event Date/Time: ??02/22/2024 1:49 PM Procedure: intubation ([id number]) Procedure Section: ?? Sedation: under general anesthesia. Indications for Airway Management: ??anesthesia Procedure pretreatments used? ??No Induction: standard IV Patient Position: ??sniffing Mask Ventilation: easy. Blade Type: Shira Blade Size: 3 Laryngoscopy View: grade 1 (full cords) Intubation Adjuncts: stylet Tube: endotracheal tube Placement: oral Tube type: cuff - inflated Tube Size (MM): 7 Depth of Insertion (CM): 22 Measured From: gums Cuff volume (mL): ??7 Cuff Inflated With: air Number of Attempts: 1. Placement Verified By: direct visualization, bilateral breath sounds, chest auscultation and CO2 monitor CXR Findings: ETT in proper place. Tube secured with: ??adhesive tape. Dentition unchanged? ??Yes Difficult Airway? ??No. Procedure Start Time: 02/22/2024 1:49 PM. Staff Section ? Anesthesia Provider: Machelle Butler APRN-DAIRY CATTLE FARM WORKER, Performed the procedure ? Provider #1: Dewey Boyle MD. Dewey Boyle MD GENERAL ANESTHESIA O RDERABLES * HCG URINE QUAL POCT NOTIFICATION (02/22/2024 12:29 PM CDT) Comment Notification Label Only - See Separate Report 02/29/2024 1:01 PM CDT [facility] Urine URINE / Unknown Collection / Unknown 02/22/2024 12:29 PM CDT 02/29/2024 11:47 AM CDT Paresh Hernandez MD LAB - URINALYSIS O RDERABLES Performing Organization Address City/[facility]/ZIP Co de Phone Number [address] [address], [facility] [phone] * HCG URINE QUALITATIVE - POCT (IP) INTERFACED (02/22/2024 12:29 PM CDT) HCG Qual Urine Negative Negative 02/29/2024 3:22 PM CDT [facility] Urine URINE / Unknown 02/22/2024 1 2:29 PM CDT 02/29/2024 3:22 PM CDT Paresh Hernandez MD LAB - POINT OF CAR E ORDERABLES [facility] [address] [place] [address], [facility] [phone] * RI ENDO NASAL SINUS BX POLYP DEBRID AURA (02/08/2024 9:36 PM CDT) Narrative Vito Brown MD - 02/08/2024 9:36 PM CDT Vito Brown MD ? 02/08/2024 ??9:42 PM Procedure- ??rigid nasal endoscopy with debridement, bilateral Due to the heavy crusting in the nose bilaterally obscuring the septal perforation, debridement was necessary to expose her nasal wound for a measurement using a ruler. There was no prior measurement. The procedure and alternatives were explained to the patient and verbal consent was obtained. The patient's bilateral nasal cavities were anesthetized with mixture of topical lidocaine and oxymetazoline. A 30- degree rigid ??endoscope was advanced into both nasal cavities for evaluations. The patient tolerated the procedure well and there were no complications. Findings- The septal mucosa was swollen bilaterally, crusting bilaterally required handheld instruments to carefully remove, piece by piece, due to patient pain. There was fibrinous debris surrounding the edges of perforation, suctioned to visualize. A newspaper manager cut down was placed into the posterior mucosal edge of perforation to measure the defect, 2cm. Vito Brown MD PROCEDURE/MINOR SURG ICAL ORDERABLES * RI NASAL ENDOSCOPY,DX (01/27/2024 3:45 PM CDT) Paresh Mooney MD - 01/27/2024 3:45 PM CDT Paresh Hernandez MD ? 01/27/2024 ??4:31 PM Due to the findings on physical examination, in correlation with the patient's symptomatology, the decision was made to perform a procedure today in clinic. Verbal consent obtained prior to starting procedure. Procedure note: Procedure: Rigid Nasal Endoscopy Pre Op Dx: ??Nasal secretions, septal perf, crusting, deviated septum Post Op: same Anesthesia: Bilateral Nasal Cavities sprayed with Lidocaine and Neosynephrine Detail: ??Rigid nasal endoscopy performed bilaterally. Note:severe crusting anteriorly with a large septal perforation extending anteriorly with partial erosion of the columella strut. 100% opacification bilaterally with inflammation extending directly from septal perforation onto the sidewall/turbinate. Crusting throughout. Paresh Hernandez MD PROCEDURE/MINOR PUENTES RGICAL ORDERABLES * ANCA SCREEN W REFLEX TO ANCA TITER (01/11/2024 12:28 PM CDT) ANCA Screen NEGATIVE NEGATIVE [facility] Comment: ANCA Screen includes evaluation for p-ANCA, c-ANCA and atypical p-ANCA. A positive ANCA screen reflexes to titer and pattern(s), e.g., cytoplasmic pattern (c-ANCA), perinuclear pattern (p-ANCA), or atypical p-ANCA pattern. ??c-ANCA and p-ANCA are observed in vasculitis, whereas atypical p-ANCA is observed in IBD (Inflammatory Bowel Disease). Atypical p-ANCA is detected in about 55% to 80% of patients with ulcerative colitis but only 5% to 25% of patients with Crohn's disease. Test Performed at: [email or web address] ??[phone] KAMRAN REYNOLDS C-ANCA Titer [facility] p-ANCA Titer [facility] Atypical p-ANCA Titer [facility] Comment: Test Performed at: [facility] [address] [place] [address] ??[phone] KAMRAN REYNOLDS Blood BLOOD SPECIMEN / Unknown 01/11/2024 12:28 PM CDT 01/11/2024 12:28 PM CDT Paresh Hernandez MD LAB - CHEMISTRY OR DERABLES Performing Organization Address City/State/[facility] Co de Phone Number [facility] [address] [place] [address] * SS-A/SS-B (SJOGREN'S) ANTIBODY PANEL (01/11/2024 12:28 PM CDT) Pathologist [facility] Sjogren's Antibodies (SSA) <1.0 NEG <1.0 NEG AI [facility] Sjogren's Antibodies (SSB) <1.0 NEG <1.0 NEG AI [facility] Comment: Test Performed at: [facility] [address] [place], [place] ??[phone] ZANA AUGUSTE MD Blood BLOOD SPECIMEN / Unknown 01/11/2024 12:28 PM CDT 01/11/2024 12:28 PM CDT Paresh Hernandez MD LAB - CHEMISTRY OR DERABLES [facility] [address] [place] [address] * LAB RESULTS ORDER (01/11/2024) 01/11/2024 Narrative 01/11/2024 Ordered by an unspecified provider. Scanned Document LAB - THERAPEUTIC DR ROTHMAN MONITORING ORDERABLES * RI ENDO NASAL SINUS BX POLYP DEBRID AURA (01/05/2024 1:15 PM CDT) Narrative Paresh Hernandez MD - 01/05/2024 1:15 PM CDT Paresh Hernandez MD ? 01/05/2024 ??1:45 PM Due to the findings on physical examination, in correlation with the patient's symptomatology, the decision was made to perform a procedure today in clinic. Verbal consent obtained prior to starting procedure. Procedure note: Procedure: Rigid Nasal Endoscopy with bilateral debridement Pre Op Dx: ??Nasal secretions Post Op: same Anesthesia: Bilateral Nasal Cavities sprayed with Lidocaine and Neosynephrine Detail: ??Rigid nasal endoscopy performed bilaterally. Note: Inflammation and edema of the mucosa bilaterally, nasal septal perforation. Mucopurulence bilaterally-suctioned and debrided with forceps. Large septal perforation. Large common cavity with active purulence. Right interior nasal cavity showed severe crusting turbinate hypertrophy, mucus stranding present. Right middle and superior meatus show pink mucosa posteriorly with mucus stranding present. Sphenoethmoidal recess inspected showing mucus stranding, intact mucosa. ??Left interior nasal cavity showed severe crusting, necrotic edges, turbinate hypertrophy, mucus stranding present. Left middle and superior meatus show pink mucosa with mucus stranding present. Sphenoethmoidal recess inspected showing mucus stranding, intact mucosa. Paresh Hernandez MD PROCEDURE/MINOR PUENTES RGICAL ORDERABLES * DERMATOPATHOLOGY (12/17/2018 12:00 AM CDT) Case Report Dermatopathology Report ? Case: [id number] ? Authorizing Provider: ??Paresh Howard MD ? [...] specimen consists of a shave biopsy measuring 7m1h8ys. Jar 0. 5:37 PM CDT DERMATOPATHOLOGY LABORATORY [...] characteristic determined by the Dermatopathology Laboratory at [facility], directed by Dr. Macy Mcdaniel. These tests need not be, and therefore are not, approved by the [place] Food and Drug Administration. The tests are used for clinical purposes. Billing Codes Specimen Charges Stain Charges 64272 1 9 5:37 PM CDT DERMATOPATHOLOGY LABORATORY Embedded Images 9 5:37 PM CDT DERMATOPATHOLOGY LABORATORY Pathology/Cytolog y TISSUE SPECIMEN FROM SKIN / Unknown 12/17/2018 12/20/2018 11:32 AM CDT Paresh Howard MD LAB - PATHOLOGY/CYTO LOGY ORDERABLES DERMATOPATHOLOGY LABORATORY [facility] - Department of Dermatology [facility], 5th Floor Lab [address] [phone] Care Teams Bariatric Coordinator Relationship Specialty Start Date End Date Hugo Mansfield MD [address] [place] [phone] PCP - General Advance Seal Delivery System Maintainer 01/05/24
--- OUTSIDE RECORDS SUMMARY | 2024-08-17 18:05 | XMS_ITS | Clinical Summary ---
Author Organization [facility] Address [address] [place] [address] Care Team Providers Care Net Software Engineer Name Role Phone Hugo Mansfield MD Primary Care Provider Source Comments [facility],non-owned Affiliates and Associated Physician Practices is amultiple site organization consisting of ambulatory clinics and hospital sitesin [place], [place], [place] and [place]. This disclosure is being madepursuant to the Care Everywhere program and may not contain all information available regarding this patient. Last updated 18.[facility] Allergies No known active allergies Medications * [...] 0.5 ML (IIV4) 04/22/2023,05/06/2022 TDAP (7yrs+) 07/20/2012 Family History Medical History Relation Name Comments Depression Father Hypertension Father Cancer - Other Mother Asthma Neg Hx Autoimmune Disease Neg Hx Bipolar Disorder Neg Hx Cancer - Breast Neg Hx Cancer - Colon Neg Hx Cancer - Ovarian Neg Hx Cancer - Pancreatic Neg Hx Cancer - Prostate Neg Hx Eczema Neg Hx Migraine Neg Hx Osteoporosis Neg Hx Seizures Neg Hx Sudd. <30 Neg Hx Thyroid Disease Neg Hx Ulcerative Colitis Neg Hx Relation Name Status Comments Father Alive Mother Social History Tobacco Use Types Packs/Day Years [...] 02/25/2024 10:05 AM CDT Plan of Treatment Health Maintenance Due Date Last Done Comments LIPID TESTING 1984 MAMMOGRAM 1984 PAP SMEAR 1984 HIV SCREENING 1999 HEPATITIS C SCREENING 06/16/2002 HEPATITIS B VACCINE (1 of 3 - 19+ 3-dose series) 2003 DTAP/TDAP/TD VACCINES (2 - Td or Tdap) 07/20/2022 07/20/2012 COVID-19 VACCINE ( season) 2024 04/30/2021, 08/09/2020, 07/10/2020 INFLUENZA VACCINE (#1) 2024 3, 05/06/2022, 04/30/2021, Additional history exists ZOSTER VACCINE (1 of 2) 2034 HIB VACCINE Aged Out No longer eligi ble based on patient's age to complete this topic HPV VACCINE Aged Out No longer eligi ble based on patient's age to complete this topic MENINGOCOCCAL (Group B) VACCINE Aged Out No longer eligible based on patient's age to complete this topic MENINGOCOCCAL VACCINE Aged Out No yomi jose eligible based on patient's age to complete this topic PNEUMOCOCCAL VACCINE Aged Out No long er eligible based on patient's age to complete this topic Care Teams Net Software Engineer Relationship Specialty Start Date End Date Hugo Mansfield MD [address] [place] [phone] PCP - General Import Manager 01/05/24
== END 2024-08-17 18:08 | disposition left against medical advice (07) ==
DX: Z53.21 Procedure and treatment not carried out due to patient leaving prior to being seen by health care provider (principal)
CPT/HCPCS: 99199